=== PATIENT | female | born 1990 | race Caucasian/White ===

== ENCOUNTER 2017-04-01 06:14 | Inpatient (IN) | payer OTHER ==
[2017-04-01] MEDS ORDERED: Methylergonovine 0.2 MG/1 ML Amp IM PRN (06:45)
[2017-04-01] MEDS ORDERED: Sodium Chloride 0.9% 2.5 ML Syringe FLUSH PRN (06:45)
[2017-04-01] MEDS ORDERED: Water For Irrigation,Sterile 1,000 ML Container IRR PRN (06:45)
[2017-04-01] MEDS ORDERED: Sodium Chloride 0.9% 10 ML Syringe FLUSH PRN (06:45)
[2017-04-01] MEDS ORDERED: Butorphanol 1 MG/ML SDV IVPUSH PRN (06:45)
[2017-04-01] MEDS ORDERED: Lidocaine 1% 50 ML MDV INJECT PRN (06:45)
[2017-04-01] MEDS ORDERED: Misoprostol 200 MCG Tab PO PRN (06:45)
[2017-04-01] MEDS ORDERED: Nalbuphine 10 MG/1 ML Vial IVPUSH PRN (06:45)
[2017-04-01] MEDS ORDERED: Oxytocin/Lactated Ringers 30 UNIT/500 ML BAG IV SCH (06:45)
[2017-04-01] MEDS ORDERED: Carboprost Tromethamine 250 MCG/1 ML Amp IM PRN (06:45)
[2017-04-01] MEDS ORDERED: Lactated Ringers 1,000 ML IV SCH (06:45)
--- NOTE | 2017-04-01 07:13 | PCM.LDHP ---
L&D History of Present Illness - General Date of Service: 04/01/17 Admit Problem/Dx: Patient Status Order with Admit Dx/Problem 04/01/17 06:19 Patient Status [ADT] Routine 04/01/17 06:46 Patient Status [ADT] Routine Admission Diagnosis/Problem Admission Diagnosis/Problem -related examination 04/01/17 07:08 27 yo EDC 03/27/2017 40 03/27 wks. A+, RI, GBS neg. Trans labor 8cm, has a plan that was disc. Source of Information: Patient History Limitations: Reports: No Limitations - History of Present Illness Timing/Duration: Reports: minutes: Location, : Reports: Abdomen Quality: Reports: Throbbing Severity: severe Context: Reports: other Improves with: Reports: None Worsens with: Reports: None Associated Symptoms: Reports: N - Related Data Allergies/Adverse Reactions: Allergies Allergy/AdvReac Type Severity Reaction Status Date / Time dexamethasone Allergy Hives Verified 12/25/16 07:07 Home Medications: Home Meds . 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 General: Reports: No Symptoms HEENT: Reports: No Symptoms Pulmonary: Reports: No Symptoms Cardiovascular: Reports: No Symptoms Gastrointestinal: Reports: No Symptoms Genitourinary: Reports: No Symptoms Musculoskeletal: Reports: No Symptoms Skin: Reports: No Symptoms Psychiatric: Reports: No Symptoms Neurological: Reports: No Symptoms Hematologic/Lymphatic: Reports: No Symptoms Immunologic: Reports: No Symptoms L&D Exam - Exam Exam: See Below - Vital Signs Weight: 81.647 kg - Exam General: Alert, Oriented HEENT: Hearing Intact Cardiovascular: Regular Rhythm Abdomen: Soft (gravid) Rectal Exam: Deferred Genitourinary: Cervical dilitation Back Exam: Full Range of Motion Extremities: Normal Inspection Skin: Warm, Dry, Intact Neurological: Cranial Nerves Intact Psychiatric: Alert, Normal Affect, Normal Mood - Problem List (1) Supervision of normal IUP (intrauterine ) in primigravida SNOMED Code(s): 27850414, 090009857, 157951810, 642814496 ICD Code: Z34.00 - ENCNTR FOR SUPRVSN OF NORMAL FIRST , UNSP TRIMESTER Status: Acute Priority: High Current Visit: Yes Qualifiers: Trimester: third trimester Qualified Code(s): Z34.03 - Encounter for supervision of normal first , third trimester Problem List Initiated/Reviewed/Updated: Yes Orders Last 24hrs: Active Orders 24 hr Category Date Time Status Patient Status [ADT] Routine ADT 04/01/17 06:46 Active Heart Tones [RC] CONTINUOUS Care 04/01/17 06:46 Active Non Stress Test [RC] PER UNIT ROUTINE Care 04/01/17 06:19 Active Non Stress Test [RC] PER UNIT ROUTINE Care 04/01/17 06:46 Active May Shower [RC] ASDIRECTED Care 04/01/17 06:46 Active Notify Provider [RC] PRN Care 04/01/17 06:46 Active Up ad Moriah [RC] ASDIRECTED Care 04/01/17 06:19 Active Up ad Moriah [RC] ASDIRECTED Care 04/01/17 06:46 Active Vaginal Exam [RC] Click To Edit Care 04/01/17 06:19 Active Vaginal Exam [RC] PRN Care 04/01/17 06:46 Active Vital Signs [RC] PER UNIT ROUTINE Care 04/01/17 06:19 Active Vital Signs [RC] PER UNIT ROUTINE Care 04/01/17 06:46 Active CBC W/O DIFF,HEMOGRAM [HEME] Routine Lab 04/01/17 06:46 Ordered TYPE AND SCREEN [BBK] Routine Lab 04/01/17 06:46 Ordered Butorphanol [Stadol] Med 04/01/17 06:45 Active 1 mg IVPUSH Q1H PRN Carboprost Tromethamine [Hemabate DS] Med 04/01/17 06:45 Active 250 mcg IM ASDIRECTED PRN Lactated Ringers [Ringers, Lactated] 1,000 ml Med 04/01/17 06:45 Active IV ASDIRECTED Lidocaine 1% [Xylocaine 1%] Med 04/01/17 06:45 Active 50 ml INJECT .ONCE PRN Methylergonovine [Methergine] Med 04/01/17 06:45 Active 0.2 mg IM ASDIRECTED PRN Misoprostol [Cytotec] Med 04/01/17 06:45 Active 200 mcg PO .ONCE PRN Nalbuphine [Nubain] Med 04/01/17 06:45 Active 10 mg IVPUSH Q1H PRN Oxytocin/Lactated Ringers [Pitocin in LR 30 Units/500 Med 04/01/17 06:45 Active ML] 30 unit in 500 ml IV TITRATE Sodium Chloride 0.9% [Saline Flush] Med 04/01/17 06:45 Active 10 ml FLUSH ASDIRECTED PRN Sodium Chloride 0.9% [Saline Flush] Med 04/01/17 06:45 Active 2.5 ml FLUSH ASDIRECTED PRN Water For Irrigation,Sterile [Sterile Water for Med 04/01/17 06:45 Active Irrigation] 1,000 ml IRR ASDIRECTED PRN Scalp Electrode [WOMSER] Per Unit Routine Oth 04/01/17 06:46 Ordered Peripheral IV Insertion Adult [OM.PC] Routine Oth 04/01/17 06:46 Ordered Resuscitation Status Routine Resus Stat 04/01/17 06:18 Ordered Medication Orders Butorphanol Tartrate (Stadol) 1 mg IVPUSH Q1H PRN PRN Reason: Pain Carboprost Tromethamine (Hemabate Ds) 250 mcg IM ASDIRECTED PRN PRN Reason: Post Hemorrhage Lactated Ringer's (Ringers, Lactated) 1,000 mls @ 150 mls/hr IV ASDIRECTED ALECIA Oxytocin/Lactated Ringer's (Pitocin In Lr 30 Units/500 Ml) 30 unit in 500 mls @ 2 mls/hr IV TITRATE ALECIA; 2 MUNITS/MIN PRN Reason: Protocol Stop: 04/02/17 06:44 Lidocaine HCl (Xylocaine 1%) 50 ml INJECT .ONCE PRN PRN Reason: Laceration repair Methylergonovine Maleate (Methergine) 0.2 mg IM ASDIRECTED PRN PRN Reason: Post Hemorrhage Misoprostol (Cytotec) 200 mcg PO .ONCE PRN PRN Reason: Post Hemorrhage Nalbuphine HCl (Nubain) 10 mg IVPUSH Q1H PRN PRN Reason: Pain (severe 7-10) Stop: 04/01/17 08:46 Sodium Chloride (Saline Flush) 10 ml FLUSH ASDIRECTED PRN PRN Reason: Keep Vein Open Sodium Chloride (Saline Flush) 2.5 ml FLUSH ASDIRECTED PRN PRN Reason: Keep Vein Open Sterile Water (Sterile Water For Irrigation) 1,000 ml IRR ASDIRECTED PRN PRN Reason: delivery Assessment/Plan Comment:: Labor A: 27 yo EDC 03/27/2017 40 5/ wks. A+, RI, GBS neg. Trans labor 8cm, has a plan that was disc. Declines pain meds/epidural at this time. P: Admit, labs, anticipate
--- NOTE | 2017-04-01 10:58 | PCM.PREANE ---
Preanesthetic Assessment - Anesthesia/Transfusion/Family Hx Anesthesia History: Prior Anesthesia Without Reaction - Review of Systems General: No Symptoms Pulmonary: No Symptoms Cardiovascular: No Symptoms Gastrointestinal: No symptoms Neurological: No Symptoms Other: Reports: None - Physical Assessment Height: 5 ft 10 in Weight: 81.647 kg ASA Class: 2 Mental Status: Alert & Oriented x3 Airway Class: Mallampati = 2 Dentition: Reports: Normal Dentition Thyro-Mental Finger Breadths: 3 Mouth Opening Finger Breadths: 3 ROM/Head Extension: Full Lungs: Clear to auscultation, Normal respiratory effort Cardiovascular: Regular Rate, Regular Rhythm - Lab Values: Laboratory Last Values WBC 11.03 K/uL (4.0-11.0) H 04/01/17 07:17 RBC 4.77 M/uL (4.30-5.90) 04/01/17 07:17 Hgb 15.1 g/dL (12.0-16.0) 04/01/17 07:17 Hct 43.3 % (36.0-46.0) 04/01/17 07:17 MCV 90.8 fL (80.0-98.0) 04/01/17 07:17 MCH 31.7 pg (27.0-32.0) 04/01/17 07:17 MCHC 34.9 g/dL (31.0-37.0) 04/01/17 07:17 RDW Std Deviation 44.5 fl (28.0-62.0) 04/01/17 07:17 RDW Coeff of Alex 14 % (11.0-15.0) 04/01/17 07:17 Plt Count 125 K/uL (150-400) L 04/01/17 07:17 MPV 12.00 fL (7.40-12.00) 04/01/17 07:17 Nucleated RBC % 0.0 /100WBC 04/01/17 07:17 Nucleated RBCs # 0 K/uL 04/01/17 07:17 Blood Type A POSITIVE 04/01/17 07:17 Antibody Screen NEGATIVE 04/01/17 07:17 - Allergies Allergies/Adverse Reactions: Allergies Allergy/AdvReac Type Severity Reaction Status Date / Time dexamethasone Allergy Hives Verified 12/25/16 07:07 - Acknowledgements Anesthesia Type Planned: Spinal, Epidural Pt an Appropriate Candidate for the Planned Anesthesia: Yes Alternatives and Risks of Anesthesia Discussed w Pt/Guardian: Yes Pt/Guardian Understands and Agrees with Anesthesia Plan: Yes PreAnesthesia Questionnaire HEENT History: Reports: None Cardiovascular History: Reports: None Respiratory History: Reports: Other (See Below) Gastrointestinal History: Reports: GERD Genitourinary History: Reports: None 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 LMP (Approximate): Musculoskeletal History: Reports: None Other Neuro History: TBI Psychiatric History: Reports: None Endocrine/Metabolic History: Reports: None Hematologic History: Reports: None Immunologic History: Reports: None Oncologic (Cancer) History: Reports: None Dermatologic History: Reports: None - Past Surgical History HEENT Surgical History: Reports: Adenoidectomy, LASIK, Tonsillectomy Respiratory Surgical History: Reports: Tracheostomy Other Respiratory Surgeries/Procedures: Tracheostomy removed GI Surgical History: Reports: Cholecystectomy - SUBSTANCE USE Smoking Status *Q: Never Smoker Second Hand Smoke Exposure: No Days Per Week of Alcohol Use: 0 Recreational Drug Use History: No - HOME MEDS Home Medications: Home Meds . [No Known Home Meds] 12/25/16 [History] - CURRENT (IN HOUSE) MEDS Current Meds: Current Medications Butorphanol Tartrate (Stadol) 1 mg IVPUSH Q1H PRN PRN Reason: Pain Carboprost Tromethamine (Hemabate Ds) 250 mcg IM ASDIRECTED PRN PRN Reason: Post Hemorrhage Lactated Ringer's (Ringers, Lactated) 1,000 mls @ 150 mls/hr IV ASDIRECTED ALECIA Oxytocin/Lactated Ringer's (Pitocin In Lr 30 Units/500 Ml) 30 unit in 500 mls @ 2 mls/hr IV TITRATE ALECIA; 2 MUNITS/MIN PRN Reason: Protocol Stop: 04/02/17 06:44 Lidocaine HCl (Xylocaine 1%) 50 ml INJECT .ONCE PRN PRN Reason: Laceration repair Methylergonovine Maleate (Methergine) 0.2 mg IM ASDIRECTED PRN PRN Reason: Post Hemorrhage Misoprostol (Cytotec) 200 mcg PO .ONCE PRN PRN Reason: Post Hemorrhage Sodium Chloride (Saline Flush) 10 ml FLUSH ASDIRECTED PRN PRN Reason: Keep Vein Open Sodium Chloride (Saline Flush) 2.5 ml FLUSH ASDIRECTED PRN PRN Reason: Keep Vein Open Sterile Water (Sterile Water For Irrigation) 1,000 ml IRR ASDIRECTED PRN PRN Reason: delivery Discontinued Medications Nalbuphine HCl (Nubain) 10 mg IVPUSH Q1H PRN PRN Reason: Pain (severe 7-10) Stop: 04/01/17 08:46
[2017-04-01] MEDS ORDERED: fentaNYL 100 MCG/2 ML SDV ONE (11:00)
[2017-04-01] MEDS ORDERED: Ropivacaine HCl/PF 100 ML ONE (11:00)
[2017-04-01] MEDS ORDERED: Ibuprofen 800 MG Tab PO PRN (13:05)
[2017-04-01] MEDS ORDERED: Witch Hazel Medicated Pads 40/Jar TOP PRN (13:05)
[2017-04-01] MEDS ORDERED: Docusate Sodium 100 MG Cap PO PRN (13:05)
[2017-04-01] MEDS ORDERED: Acetaminophen 500 MG Tab PO PRN ×2 (13:05)
[2017-04-01] MEDS ORDERED: Bisacodyl 10 MG Supp RECTAL PRN (13:05)
[2017-04-01] MEDS ORDERED: oxyCODONE 5 MG Tab PO PRN (13:05)
[2017-04-01] MEDS ORDERED: Ibuprofen 400 MG Tab PO PRN (13:05)
[2017-04-01] MEDS ORDERED: Lanolin 100% Cream 7 GM Tube TOP PRN (13:05)
[2017-04-01] MEDS ORDERED: Benzocaine/Menthol 20%-0.5% Spray 78 GM Cannister TOP PRN (13:05)
--- NOTE | 2017-04-01 13:17 | PCM.DEL ---
L & D Note - General Info Date of Service: 04/01/17 Mother's Due Date: 03/27/17 - Delivery Note Labor: spontaneous Delivery Outcome: Livebirth Infant Delivery Method: Spontaneous Vaginal Delivery Infant Delivery Mode: Spontaneous Presentation: Vertex Nuchal cord: present Anesthesia Type: Epidural Anesthetic: lidocaine (xylocaine) 1% plain Local anesthetic volume: 1cc Amniotic Fluid Description: Meconium stained Episiotomy Type: None Laceration: 1st degree Suture type: other Suture size: 3-0 Placenta: intact, spontaneous Cord: 3 vessels Estimated blood loss: 300 Resuscitation needed: No Score 1 min: 6 Score 5 min: 9 Second Stage Interventions: Reports: Pushing Effectively Delivery Comments (Free Text/Narrative):: of viable female over intact perineum. Head delivered with good pushing, nuchel x1 loose reduced over head, shoulders and body followed easily. to mother abd with Dr Morse at for eval due to mec stained fluid. Delayed cord clamping. Cord clamped after stopped beating and cut by FOB. Cord blood collected. Placenta delivered grossly intact. Inspection noted 1st degree lac that was repaired with a 3-0 Cap in the usual manor. EBL 300cc, APGARS 6/9, Wt: 8lb 4oz, mother and left in stable condition bonding skin to skin. counts correct. - General Info Date of Service: 04/01/17 Admission Dx/Problem (Free Text): Patient Status Order with Admit Dx/Problem 04/01/17 06:19 Patient Status [ADT] Routine 04/01/17 06:46 Patient Status [ADT] Routine Admission Diagnosis/Problem Admission Diagnosis/Problem -related examination 04/01/17 07:08 27 yo EDC 03/27/2017 40 5/7 wks. A+, RI, GBS neg. Trans labor 8cm, has a plan that was disc. Functional Status: Reports: pain controlled, tolerating diet - Review of Systems General: Reports: No Symptoms HEENT: Reports: no symptoms Pulmonary: Reports: no symptoms Cardiovascular: Reports: No Symptoms Gastrointestinal: Reports: No symptoms Genitourinary: Reports: no symptoms Musculoskeletal: Reports: no symptoms Skin: Reports: no symptoms Neurological: Reports: No Symptoms Psychiatric: Reports: no symptoms - Patient Data Weight - most recent: 81.647 kg Lab Results last 24 hrs: Laboratory Results - last 24 hr 04/01/17 04/01/17 Range/Units 07:17 07:17 WBC 11.03 H (4.0-11.0) K/uL RBC 4.77 (4.30-5.90) M/uL Hgb 15.1 (12.0-16.0) g/dL Hct 43.3 (36.0-46.0) % MCV 90.8 (80.0-98.0) fL MCH 31.7 (27.0-32.0) pg MCHC 34.9 (31.0-37.0) g/dL RDW Std Deviation 44.5 (28.0-62.0) fl RDW Coeff of Alex 14 (11.0-15.0) % Plt Count 125 L (150-400) K/uL MPV 12.00 (7.40-12.00) fL Nucleated RBC % 0.0 /100WBC Nucleated RBCs # 0 K/uL Blood Type A POSITIVE Antibody Screen NEGATIVE Med Orders - Current: Current Medications Acetaminophen (Tylenol Extra Strength) 500 mg PO Q4H PRN PRN Reason: Pain Acetaminophen (Tylenol Extra Strength) 1,000 mg PO Q4H PRN PRN Reason: Pain Benzocaine/Menthol (Dermoplast Pain Relief 20%-0.5% [place]) 78 gm TOP ASDIRECTED PRN PRN Reason: Perineal Comfort Measure Bisacodyl (Dulcolax) 10 mg RECTAL .ONCE PRN PRN Reason: Constipation Docusate Sodium (Colace) 100 mg PO BID PRN PRN Reason: Constipation Emollient Ointment (Lansinoh Hpa) 0 gm TOP ASDIRECTED PRN PRN Reason: Sore Nipples Ibuprofen (Motrin) 400 mg PO Q4H PRN PRN Reason: Pain Ibuprofen (Motrin) 800 mg PO Q6H PRN PRN Reason: Pain Oxycodone HCl (Oxycodone) 5 mg PO Q2H PRN PRN Reason: Pain Witch Michell (Tucks) 1 pad TOP ASDIRECTED PRN PRN Reason: comfort care Discontinued Medications Butorphanol Tartrate (Stadol) 1 mg IVPUSH Q1H PRN PRN Reason: Pain Carboprost Tromethamine (Hemabate Ds) 250 mcg IM ASDIRECTED PRN PRN Reason: Post Hemorrhage Fentanyl (Sublimaze) Confirm Administered Dose 100 mcg .ROUTE .STK-MED ONE Stop: 04/01/17 11:01 Lactated Ringer's (Ringers, Lactated) 1,000 mls @ 150 mls/hr IV ASDIRECTED ALECIA Last Admin: 04/01/17 12:11 Dose: 150 mls/hr Oxytocin/Lactated Ringer's (Pitocin In Lr 30 Units/500 Ml) 30 unit in 500 mls @ 2 mls/hr IV TITRATE ALECIA; 2 MUNITS/MIN PRN Reason: Protocol Stop: 04/02/17 06:44 Ropivacaine (Naropin 0.2%) Confirm Administered Dose 100 mls @ as directed .ROUTE .[employer]-MED ONE Stop: 04/01/17 11:01 Lidocaine HCl (Xylocaine 1%) 50 ml INJECT .ONCE PRN PRN Reason: Laceration repair Methylergonovine Maleate (Methergine) 0.2 mg IM ASDIRECTED PRN PRN Reason: Post Hemorrhage Misoprostol (Cytotec) 200 mcg PO .ONCE PRN PRN Reason: Post Hemorrhage Nalbuphine HCl (Nubain) 10 mg IVPUSH Q1H PRN PRN Reason: Pain (severe 7-10) Stop: 04/01/17 08:46 Sodium Chloride (Saline Flush) 10 ml FLUSH ASDIRECTED PRN PRN Reason: Keep Vein Open Sodium Chloride (Saline Flush) 2.5 ml FLUSH ASDIRECTED PRN PRN Reason: Keep Vein Open Sterile Water (Sterile Water For Irrigation) 1,000 ml IRR ASDIRECTED PRN PRN Reason: delivery - Exam General: alert, oriented, cooperative, no acute distress Lungs: Normal respiratory effort Abdomen: soft, no tenderness, no distension (Female) Exam: Normal External Exam, Normal Bimanual Exam, Vaginal Bleeding, Vaginal Tears Back Exam: Full Range of Motion Extremities: no edema Skin: warm, dry, intact Wound/Incisions: healing well Neurological: no new focal deficit, normal speech, normal tone Psy/Mental Status: alert, normal affect, normal mood - Problem List & Annotations (1) Supervision of normal IUP (intrauterine ) in primigravida SNOMED Code(s): 64590443, 878009979, 564286691, 124701595 Code(s): Z34.00 - ENCNTR FOR SUPRVSN OF NORMAL FIRST , UNSP TRIMESTER Status: Acute Priority: High Current Visit: Yes Qualifiers: Trimester: third trimester Qualified Code(s): Z34.03 - Encounter for supervision of normal first , third trimester (2) (normal spontaneous vaginal delivery) SNOMED Code(s): 58340519 Code(s): O80 - ENCOUNTER FOR FULL-TERM UNCOMPLICATED DELIVERY Status: Acute Priority: Medium Current Visit: Yes - Problem List Review Problem List Initiated/Reviewed/Updated: Yes - My Orders Last 24 Hours: My Active Orders 04/01/17 06:19 Non Stress Test [RC] PER UNIT ROUTINE Up ad Moriah [RC] ASDIRECTED Vaginal Exam [RC] Click To Edit Vital Signs [RC] PER UNIT ROUTINE 04/01/17 06:46 Heart Tones [RC] CONTINUOUS Non Stress Test [RC] PER UNIT ROUTINE May Shower [RC] ASDIRECTED Notify Provider [RC] PRN Up ad Moriah [RC] ASDIRECTED Vaginal Exam [RC] PRN Vital Signs [RC] PER UNIT ROUTINE 04/01/17 13:05 May Shower [RC] ASDIRECTED Up ad Moriah [RC] ASDIRECTED Vital Signs [RC] PER UNIT ROUTINE Acetaminophen [Tylenol Extra Strength] 1,000 mg PO Q4H PRN Acetaminophen [Tylenol Extra Strength] 500 mg PO Q4H PRN Benzocaine/Menthol [Dermoplast Pain Relief 20%-0.5% [place]] 78 gm TOP ASDIRECTED PRN Bisacodyl [Dulcolax] 10 mg RECTAL .ONCE PRN Docusate Sodium [Colace] 100 mg PO BID PRN Ibuprofen [Motrin] 400 mg PO Q4H PRN Ibuprofen [Motrin] 800 mg PO Q6H PRN Lanolin [Lansinoh HPA] See Dose Instructions TOP ASDIRECTED PRN Witch Michell [Tucks] 1 pad TOP ASDIRECTED PRN oxyCODONE 5 mg PO Q2H PRN Assess Lochia [WOMSER] Per Unit Routine Assess Uterine Involution [WOMSER] Per Unit Routine Peripheral IV Discontinue [OM.PC] Routine Resuscitation Status Routine 04/01/17 13:08 Patient Status [ADT] Routine 04/01/17 Lunch Regular Diet [DIET] - Assessment Assessment:: of viable female. 1st degree lac with repari. EBL 300cc, APGARS 6/9, Wt: 8lb 4ozStable - Plan Plan:: Labor A: 27 yo EDC 03/27/2017 40 5/7 wks. A+, RI, GBS neg. Trans labor 8cm, has a plan that was disc. Declines pain meds/epidural at this time. P: Admit, labs, anticipate Delivery P: routine pp plan of care
--- NOTE | 2017-04-02 07:27 | PCM.DCSUM1 ---
Discharge Summary - Hospital Course Free Text/Narrative:: Discharge home with . Follow up in 6 weeks or sooner in needed - Discharge Data Discharge Date: 04/02/17 Discharge Disposition: Home, Self-Care 01 Condition: Good - Discharge Diagnosis/Problem(s) (1) Supervision of normal IUP (intrauterine ) in primigravida SNOMED Code(s): 10348505, 444705939, 096463742, 947122492 ICD Code: Z34.00 - ENCNTR FOR SUPRVSN OF NORMAL FIRST , UNSP TRIMESTER Status: Acute Priority: High Current Visit: Yes Qualifiers: Trimester: third trimester Qualified Code(s): Z34.03 - Encounter for supervision of normal first , third trimester (2) (normal spontaneous vaginal delivery) SNOMED Code(s): 01433999 ICD Code: O80 - ENCOUNTER FOR FULL-TERM UNCOMPLICATED DELIVERY Status: Acute Priority: Medium Current Visit: Yes - Patient Instructions Diet: Usual Diet as Tolerated Activity: As Tolerated, Rest and Relax Today Driving: Do Not Drive (FOR A FEW Days) Showering/Bathing: May Shower Notify Provider of: Fever, Increased Pain, Swelling and Redness, Nausea and/or Vomiting Other/Special Instructions: Discharge home with infant. Follow up 6 weeks or sooner if needed - Discharge Plan Home Medications: Home Meds . [No Known Home Meds] 12/25/16 [History] - General Info Date of Service: 04/02/17 Admission Dx/Problem (Free Text: Patient Status Order with Admit Dx/Problem 04/01/17 06:19 Patient Status [ADT] Routine 04/01/17 06:46 Patient Status [ADT] Routine Admission Diagnosis/Problem Admission Diagnosis/Problem -related examination 04/01/17 07:08 27 yo EDC 03/27/2017 40 03/27 wks. A+, RI, GBS neg. Trans labor 8cm, has a plan that was disc. Functional Status: Reports: pain controlled, tolerating diet, ambulating, urinating - Review of Systems General: Reports: No Symptoms HEENT: Reports: no symptoms Pulmonary: Reports: no symptoms Cardiovascular: Reports: No Symptoms Gastrointestinal: Reports: No symptoms Genitourinary: Reports: no symptoms Musculoskeletal: Reports: no symptoms Skin: Reports: no symptoms Neurological: Reports: No Symptoms Psychiatric: Reports: no symptoms - Patient Data Vitals - Most Recent: Last Vital Signs Temp 36.0 C 04/02/17 03:31 Pulse 108 H 04/02/17 03:31 Resp 18 04/02/17 03:31 BP 128/80 04/02/17 03:31 Pulse Ox 98 04/01/17 20:00 Weight - Most Recent: 81.647 kg Lab Results - Last 24 hrs: Laboratory Results - last 24 hr 04/01/17 04/01/17 Range/Units 07:17 07:17 WBC 11.03 H (4.0-11.0) K/uL RBC 4.77 (4.30-5.90) M/uL Hgb 15.1 (12.0-16.0) g/dL Hct 43.3 (36.0-46.0) % MCV 90.8 (80.0-98.0) fL MCH 31.7 (27.0-32.0) pg MCHC 34.9 (31.0-37.0) g/dL RDW Std Deviation 44.5 (28.0-62.0) fl RDW Coeff of Alex 14 (11.0-15.0) % Plt Count 125 L (150-400) K/uL MPV 12.00 (7.40-12.00) fL Nucleated RBC % 0.0 /100WBC Nucleated RBCs # 0 K/uL Blood Type A POSITIVE Antibody Screen NEGATIVE Med Orders - Current: Current Medications Acetaminophen (Tylenol Extra Strength) 500 mg PO Q4H PRN PRN Reason: Pain Acetaminophen (Tylenol Extra Strength) 1,000 mg PO Q4H PRN PRN Reason: Pain Benzocaine/Menthol (Dermoplast Pain Relief 20%-0.5% [place]) 78 gm TOP ASDIRECTED PRN PRN Reason: Perineal Comfort Measure Bisacodyl (Dulcolax) 10 mg RECTAL .ONCE PRN PRN Reason: Constipation Docusate Sodium (Colace) 100 mg PO BID PRN PRN Reason: Constipation Emollient Ointment (Lansinoh Hpa) 0 gm TOP ASDIRECTED PRN PRN Reason: Sore Nipples Ibuprofen (Motrin) 400 mg PO Q4H PRN PRN Reason: Pain Ibuprofen (Motrin) 800 mg PO Q6H PRN PRN Reason: Pain Oxycodone HCl (Oxycodone) 5 mg PO Q2H PRN PRN Reason: Pain Witch Michell (Tucks) 1 pad TOP ASDIRECTED PRN PRN Reason: comfort care Discontinued Medications Butorphanol Tartrate (Stadol) 1 mg IVPUSH Q1H PRN PRN Reason: Pain Carboprost Tromethamine (Hemabate Ds) 250 mcg IM ASDIRECTED PRN PRN Reason: Post Hemorrhage Fentanyl (Sublimaze) Confirm Administered Dose 100 mcg .ROUTE .[facility] [facility]MED ONE Stop: 04/01/17 11:01 Lactated Ringer's (Ringers, Lactated) 1,000 mls @ 150 mls/hr IV ASDIRECTED ALECIA Last Admin: 04/01/17 12:11 Dose: 150 mls/hr Oxytocin/Lactated Ringer's (Pitocin In Lr 30 Units/500 Ml) 30 unit in 500 mls @ 2 mls/hr IV TITRATE ALECIA; 2 MUNITS/MIN PRN Reason: Protocol Stop: 04/02/17 06:44 Ropivacaine (Naropin 0.2%) Confirm Administered Dose 100 mls @ as directed .ROUTE .[employer] ONE Stop: 04/01/17 11:01 Lidocaine HCl (Xylocaine 1%) 50 ml INJECT .ONCE PRN PRN Reason: Laceration repair Last Admin: 04/01/17 17:04 Dose: 50 ml Methylergonovine Maleate (Methergine) 0.2 mg IM ASDIRECTED PRN PRN Reason: Post Hemorrhage Misoprostol (Cytotec) 200 mcg PO .ONCE PRN PRN Reason: Post Hemorrhage Nalbuphine HCl (Nubain) 10 mg IVPUSH Q1H PRN PRN Reason: Pain (severe 7-10) Stop: 04/01/17 08:46 Sodium Chloride (Saline Flush) 10 ml FLUSH ASDIRECTED PRN PRN Reason: Keep Vein Open Sodium Chloride (Saline Flush) 2.5 ml FLUSH ASDIRECTED PRN PRN Reason: Keep Vein Open Sterile Water (Sterile Water For Irrigation) 1,000 ml IRR ASDIRECTED PRN PRN Reason: delivery - Exam General: Reports: alert, oriented, cooperative, no acute distress Lungs: Reports: Normal respiratory effort Abdomen: Reports: soft, no tenderness, no distension (Female) Exam: Vaginal Bleeding Back Exam: Reports: Full Range of Motion Extremities: Reports: no edema, normal pulses Skin: Reports: warm, dry, intact Wound/Incisions: Reports: healing well Neurological: Reports: no new focal deficit Psy/Mental Status: Reports: alert, normal affect, normal mood *Q Meaningful Use (DIS) - VTE *Q VTE Criteria *Q: - Stroke *Q Stroke Criteria *Q: - AMI *Q AMI Criteria *Q:
[2017-04-02 14:38] VITALS: BP 128/60
--- NOTE | 2017-04-02 19:54 | PCM48HPAN ---
Post Anesthesia Note - EVALUATION WITHIN 48HRS OF ANESTHETIC Vital Signs in Normal Range: Yes Patient Participated in Evaluation: Yes Respiratory Function Stable: Yes Airway Patent: Yes Cardiovascular Function Stable: Yes Hydration Status Stable: Yes Pain Control Satisfactory: Yes Nausea and Vomiting Control Satisfactory: Yes Mental Status Recovered: Yes
== END 2017-04-02 14:30 | disposition home or self-care (01) | DRG 775 ==
LOC: MW.OBCHECK 06:14 → MW.OB 06:15 → MW.OBCHECK 06:46 → MW.OB 12:00 → OBSVTOIN 12:24
PROVIDERS: ADMIT Obstetrics & Gynecology; ATTEND Obstetrics & Gynecology
PROC: 10E0XZZ Delivery of Products of Conception, External Approach (ICD-10-PCS; principal; 2017-04-01)
PROC: 0HQ9XZZ Repair Perineum Skin, External Approach (ICD-10-PCS; 2017-04-01)
DX: O70.0 First degree perineal laceration during delivery (principal); Z3A.40 40 weeks gestation of pregnancy; Z37.0 Single live birth
CPT/HCPCS: 01967; 36415; 59025; 85027; 86850; 86900; 86901; J2795; J3010; J7120

== ENCOUNTER 2023-03-13 11:01 | Emergency (ER) | payer MEDICAID ==
[2023-03-13 11:20] VITALS: BP 118/82; PULSE 94
[2023-03-13 12:01] LABS: CORONAVIRUS COVID-19 NAA NEGATIVE (NEGATIVE); INFLUENZA A NAA NEGATIVE (NEGATIVE); INFLUENZA B NAA NEGATIVE (NEGATIVE); RESPIRATORY SYNCYTIAL VIR NAA NEGATIVE (NEGATIVE)
== END 2023-03-13 12:34 | disposition home or self-care (01) ==
LOC: MW.ED 11:01
DX: J06.9 Acute upper respiratory infection, unspecified (principal); Z88.8 Allergy status to other drugs, medicaments and biological substances; Z20.822 Contact with and (suspected) exposure to COVID-19
CPT/HCPCS: 0241U; 87651; 99283

== ENCOUNTER 2023-11-27 10:22 | Emergency (ER) | payer MEDICAID ==
[2023-11-27 12:40] VITALS: BP 122/81; PULSE 84
== END 2023-11-27 12:40 | disposition home or self-care (01) ==
LOC: MW.ED 10:22
DX: S62.601A Fracture of unspecified phalanx of left index finger, initial encounter for closed fracture (principal); Z88.8 Allergy status to other drugs, medicaments and biological substances; W23.1XXA Caught, crushed, jammed, or pinched between stationary objects, initial encounter; Y92.828 Other wilderness area as the place of occurrence of the external cause
CPT/HCPCS: 73130-26-RT; 73130-RT; 99283

== ENCOUNTER 2024-09-29 10:38 | Emergency (ER) | payer MEDICAID ==
[2024-09-29] MEDS: Tetracaine HCl/PF 0.5% 4 ML Bottle EYELF ONE (11:17)
[2024-09-29 11:58] VITALS: BP 120/80; PULSE 70
== END 2024-09-29 11:57 | disposition home or self-care (01) ==
LOC: MW.ED 10:38
DX: H57.9 Unspecified disorder of eye and adnexa (principal); Z88.8 Allergy status to other drugs, medicaments and biological substances; Z75.8 Other problems related to medical facilities and other health care
CPT/HCPCS: 99283; J3490

== ENCOUNTER 2025-10-09 08:17 | Emergency (ER) | payer MEDICAID ==
[2025-10-09] MEDS: Tetracaine HCl/PF 0.5% 4 ML Bottle EYEBOTH ONE (08:36)
[2025-10-09] MEDS: Fluorescein 1 MG Ophth Strip EYEBOTH ONE (08:36)
[2025-10-09 09:11] VITALS: BP 111/75; PULSE 70
== END 2025-10-09 09:11 | disposition home or self-care (01) ==
LOC: MW.ED 08:17
DX: H53.142 Visual discomfort, left eye (principal); Z88.8 Allergy status to other drugs, medicaments and biological substances; Z90.49 Acquired absence of other specified parts of digestive tract
CPT/HCPCS: 99283; J3490